=== PATIENT | female | born 1975 | race Caucasian/White ===

== ENCOUNTER 2019-08-08 14:55 | Emergency (ER) | payer OTHER, SELFPAY ==
--- NOTE | ~2019-08-08 | US_ITS ---
EXAMINATION: US right upper quadrant EXAM DATE: 08/08/2019 16:58 INDICATION: Right upper quadrant pain. TECHNIQUE: Multiple grayscale and Doppler images of the abdomen right upper quadrant were obtained (b y a technologist who performed the scan) and subsequently reviewed. There is no prior study for girish francisco. FINDINGS: The pancreatic head and body are normal in appearance. The pancreatic tail is not visualized. The l iver has normal echogenicity and contour. There are no focal liver lesions identified. There is no evidence of intrahepatic biliary duct dilation. Portal venous flow was seen in the hepatopedal, nor mal direction and has normal Doppler waveform. No right-sided hydronephrosis. Common bile duct measures 6 mm, which is normal. The gallbladder wall is normal in thickness, with ex pected amount of distention. No sonographic evidence of pericholecystic fluid. There is no cholelit hiases. Technologist performing exam reports patient did not demonstrate sonographic Barron's sign. Please note that this sign is less reliable in patients who have received pain medication. IMPRESSION: Unremarkable abdominal ultrasound exam. Reviewed, dictated and finalized at location A. [employer]
[2019-08-08 14:55] VITALS: BP 125/80; PULSE 98; RESP 16; TEMP 37.2; O2SAT 97
[2019-08-08 16:11] LABS: Basophils Absolute Auto 0.05 K/mm3 (0.00-0.10); Basophils Percent Auto 0.5 % (0.0-1.0); Eosinophils Absolute Auto 0.37 K/mm3 (0.02-0.50); Eosinophils Percent Auto 3.8 % (1.0-6.0); Hematocrit 37.1 % (35.0-49.0); Hemoglobin 12.4 g/dL (12.0-15.0); Immature Granulocyte Absolute 0.07 K/mm3 (0.00-0.00); Immature Granulocyte Percent A 0.7 % (0.0-0.0); Lymphocytes Absolute Auto 3.42 K/mm3 (1.10-4.50); Lymphocytes Percent Auto 34.9 % (18.0-42.0); Mean Corpuscular HGB Conc 33.4 g/dL (32.0-36.0); Mean Corpuscular Hemoglobin 31.2 pg (27.0-31.0); Mean Corpuscular Volume 93.5 fL (78.0-102.0); Mean Platelet Volume 9.5 fl (9.2-11.8); Monocytes Percent Auto 10.2 % (2.0-11.0); Neutrophils Absolute Auto 4.9 K/mm3 (1.7-7.2); Neutrophils Percent Auto 49.9 % (50.0-70.0); Platelet Count Result 274 K/mm3 (150-420); Red Blood Count 3.97 M/mm3 (4.20-5.40); Red Cell Distribution Width 13.3 % (11.6-14.4); White Blood Count 9.8 K/mm3 (4.8-10.8)
[2019-08-08 16:21] LABS: Alanine Aminotransferase 25 U/L (14-59); Albumin Level 3.3 g/dL (3.4-5.0); Alkaline Phosphatase 87 U/L (46-116); Amylase 64 U/L (25-115); Aspartate Amino Transferase 13 U/L (15-37); Bilirubin,Total 0.2 mg/dL (0.00-1.00); Blood Urea Nitrogen 15 mg/dL (7-18); Carbon Dioxide 26 mmol/L (21-32); Chloride 105 mmol/L (98-108); Estimated Glomerular Filt Rate > 60; Glucose 87 mg/dL (70-99); Lipase 142 U/L (73-393); Osmolality Calculated 287 mOsm/kg (285-295); Sodium 139 mmol/L (136-145); Total Protein 7.8 g/dL (6.4-8.2)
[2019-08-08 16:22] LABS: Troponin I < 0.02 ng/mL (0.00-0.056)
--- NOTE | 2019-08-08 17:15 | ED.GENADULT ---
HPI - General Adult General Chief complaint: Chest Pain Stated complaint: CHEST PAIN THROAT PAIN Time Seen by Provider: 08/08/19 16:25 Source: patient Mode of arrival: ambulatory Limitations: no limitations History of Present Illness HPI narrative: Lo is a 44-year-old female patient. She presents ambulatory to the emergency room. She has had pain in the epigastric area radiating substernally into the chest. This has been going on for nearly 2 weeks. She states that any kind of for food makes the symptoms worse. She has no shortness of breath. no cough. No fever. She has had some vomiting. She associates the symptoms with eating though not with any particular type of food . No history of diarrhea. She says that she had diabetes but she lost a lot of weight and now she does not have to take any medication for diabetes. MD complaint: epigastric pain radiating substernally Onset (ago): week(s) ( 2 weeks) Severity: moderate Quality: burning Pain Consistency: intermittent Relieving factors: none Exacerbating factors: other ( See HPI narrative) Associated symptoms: other ( see HPI narrative) Treatments prior to arrival: none Related Data Home Medications Medication Instructions Recorded Confirmed lamotrigine 100 mg PO HS 08/08/19 08/08/19 prazosin 6 mg PO HS 08/08/19 08/08/19 risperidone 1 mg PO DAILY 08/08/19 08/08/19 Allergies Allergy/AdvReac Type Severity Reaction Status Date / Time Penicillins Allergy Intermediate Verified 12/06/17 08:59 Review of Systems Review of Systems: All systems reviewed & are unremarkable except as noted in HPI and below Constitutional: Constitutional: Reports as per HPI, Reports no additional constitutional complaints, Denies chills and Denies fever(s) Eyes: Eyes: Reports as per HPI, Reports no additional eye complaints and Denies change in vision ENT: Reports system reviewed and no additional complaints, except as documented, Denies dysphagia, Denies vertigo, Denies dizziness, Denies nasal congestion and Denies sore throat Cardiovascular: Cardiovascular: Reports no additional cardiovascular complaints and Denies radiating jaw, neck or arm pain Comments: see HPI narrative for details Respiratory: Respiratory: Reports as per HPI, Denies chest congestion, Denies cough and Denies wheezing Gastrointestinal: Gastrointestinal: Reports as per HPI, Reports nausea and Reports vomiting Comments: see HPI narrative Genitourinary: Genitourinary: Reports no additional female genitourinary complaints, Denies hematuria and Denies dysuria Musculoskeletal: Musculoskeletal: Reports no additional musculoskeletal complaints and Denies back pain Integumentary/Breasts: Skin/Breast: Reports system reviewed and no additional complaints, except as docu, Denies erythema and Denies rash Neurologic: Reports system reviewed and no additional complaints, except as documented Comments: mild anxiety. She has history of PTSD depression and anxiety Psychiatric: Psychiatric: Reports depression Comments: has history of anxiety depression and PTSD Endocrine: Endocrine: Reports as per HPI, Denies polydipsia and Denies polyuria Hematologic/Lymphatic: Hematologic/Lymphatic: Reports no additional hematologic/lymphatic complaints, Denies easy bleeding and Denies easy bruising Allergic/Immunologic: Allergic/Immunologic: Reports no additional allergic/immunologic complaints PMFSH Past Medical History Medical History (Updated 08/08/19 @ 17:56 by Hari Garcia MD) Anxiety Depression Obesity PTSD (post-traumatic stress disorder) Surgical History Surgical History (Updated 08/08/19 @ 17:48 by Hari Garcia MD) History of tubal ligation Family History Family History (Updated 08/08/19 @ 17:50 by Hari Garcia MD) Mother , mother had obesity and diabetes Diabetes mellitus Father , father of lung cancer No problems noted. Sibling , A siste
--- NOTE | 2019-08-08 17:17 | ECG_ITS ---
Measurements Intervals [place] Rate: 91 P: 44 AK: 120 QRS: 14 QRSD: 101 T: 17 QT: 380 QTc: 469 Interpretive Statements SINUS RHYTHM LOW QRS VOLTAGE IN PRECORDIAL LEADS BORDERLINE ECG Electronically Signed On 08-09-2019 7:40:31 PRIMARY CARE PHYSICIAN by Ky Willis D.O.
[2019-08-08 17:25] VITALS: BP 121/79; PULSE 93; RESP 14; O2SAT 97
== END 2019-08-08 17:26 | disposition home or self-care (01) ==
LOC: CHSED 16:02
PROVIDERS: Emergency Provider Surgery
DX: R10.13 Epigastric pain (principal); K21.9 Gastro-esophageal reflux disease without esophagitis
CPT/HCPCS: 36415; 76705; 80053; 82150; 83690; 84484; 85025; 93005; 99284

== ENCOUNTER 2021-10-20 14:44 | Emergency (ER) | payer OTHER, SELFPAY ==
[2021-10-20 15:00] VITALS: BP 132/95; PULSE 106; RESP 20; TEMP 36.9; O2SAT 96
--- NOTE | 2021-10-20 15:05 | ED.WOUNDLAC ---
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 Onset (ago): hour(s) Extremity Location: Left: hand ( laceration to left ring finger well approximated) Related Data Home Medications Medication Instructions Recorded Confirmed lamotrigine 100 mg PO HS 08/08/19 08/08/19 prazosin 6 mg PO HS 08/08/19 08/08/19 risperidone 1 mg PO DAILY 08/08/19 08/08/19 Allergies Allergy/AdvReac Type Severity Reaction Status Date / Time Penicillins Allergy Intermediate Verified 12/06/17 08:59 Review of Systems Review of Systems: All systems reviewed & are unremarkable except as noted in HPI and below PMFSH Past Medical History Medical History Anxiety Depression Obesity PTSD (post-traumatic stress disorder) Surgical History Surgical History History of tubal ligation Family History Family History Mother , mother had obesity and diabetes Diabetes mellitus Father , father of lung cancer No problems noted. Sibling , A sister at age 42 of melanoma No problems noted. Social History Social History Smoking status: Current every day smoker Additional smoking assessment comments: smokes half pack of cigarettes a day Substance use: never Exam Const: General: no acute distress and alert Orientation/consciousness: patient oriented x3 HENMT: Head: normal to inspection Eyes: Conjunctivae: conjunctivae normal Pupils: Equal, round and reactive pupils present Neck: Neck: normal visual inspection and no lymphadenopathy Chest: Chest palpation & inspection: normal inspection of the chest Resp: Effort & Inspection: normal respiratory effort Auscultation: clear to auscultation bilaterally Cardio: Rate: regular rate Rhythm: regular rhythm GI: GI Palp: Yes Soft to palpation Percussion: Yes normal to percussion Urinary Catheter: Urinary Catheter: patent and draining Back/Spine/Pelvis: Back: no CVA tenderness Skin: General skin exam: normal color Wounds: wounds noted ( Well-approximated laceration lateral aspect of the nail bed and finger) Neuro: General: patient oriented x3, moves all extremities and no meningeal signs Extrem: General: normal to inspection Psych: Mental Status: mental status grossly normal Affect: normal affect Course Course Emergency Course: applied Dermabond after the area was cleaned and consent obtained currently no bleeding patient tolerated procedure well Vital Signs Vital signs: Vital Signs Temperature 36.9 C 10/20/21 15:00 Pulse Rate 106 H 10/20/21 15:00 Respiratory Rate 20 10/20/21 15:00 Blood Pressure 132/95 H 10/20/21 15:00 Pulse Oximetry 96 10/20/21 15:00 Temperature 36.9 C 10/20/21 15:00 Pulse Rate 106 H 10/20/21 15:00 Respiratory Rate 20 10/20/21 15:00 Blood Pressure 132/95 H 10/20/21 15:00 Pulse Oximetry 96 10/20/21 15:00 Procedures Laceration Laceration 1: Date: 10/20/21 Time: 15:08 Site: upper extremity Side (If applicable): left Size (cm): 2 Description: linear Pre-repair: wound explored and irrigated ====== Skin Level ====== Skin layer closed with: dermabond ====== Subcutaneous Layer ====== ====== Muscle Layer ====== ====== Te
[2021-10-20] MEDS: TETANUS,DIPHTHERIA,AC PERTUSSIS ADULT 0.5 ML (ADACEL) IM (15:06)
== END 2021-10-20 15:16 | disposition home or self-care (01) ==
PROVIDERS: Emergency Provider Emergency Medicine; PCP Nurse Practitioner Family
DX: S61.215A Laceration without foreign body of left ring finger without damage to nail, initial encounter (principal); W45.8XXA Other foreign body or object entering through skin, initial encounter
CPT/HCPCS: 12001; 90471; 90715; 99282

== ENCOUNTER 2022-04-01 09:08 | Emergency (ER) | payer OTHER, SELFPAY ==
[2022-04-01] VITALS (17 sets, daily range): BP systolic 111–144; BP diastolic 79–92; PULSE 73–90; RESP 9–20; TEMP 36.6–36.8; O2SAT 93–98
--- NOTE | ~2022-04-01 | CT_ITS ---
EXAMINATION: CTA brain DATE: 04/01/2022 13:03 INDICATION: Right arm weakness and numbness. Right leg weakness. TECHNIQUE: Computed tomographic angiography (CTA) of the head was performed without and with 100 mL O mnipaque-350 intravenous contrast. Automated exposure control and iterative reconstruction technique were employed. The dose-length product was 1559.92 mGy-cm. Maximum intensity projection 3D reconstru ctions were created. Volume-rendered 3D reconstructions of the intracranial arteries were created by the technologist on a separate workstation. COMPARISON: None. FINDINGS: There is no intracranial hemorrhage, acute infarction, or abnormal intracranial mass lesion . The ventricles are normal in size. The orbits are normal. There is mild mucosal thickening in the p aranasal sinuses. The mastoid air cells are normal. There is plaque in the proximal internal carotid arteries with 0% stenosis on the right and 21% stenosis on the left relative to normal distal artery lumen diameters. There is no significant stenosis of the intracranial internal carotid arteries or an terior or middle cerebral arteries. Anterior communicating artery is normal. The vertebral arteries a re codominant. There is no significant stenosis of basilar artery or the posterior cerebral arteries. The posterior communicating arteries are normal. There is no aneurysm. There is severe cervical spon dylosis. IMPRESSION: 1. Normal brain. No aneurysm or significant intracranial internal stenosis. Reviewed, dictated and finalized at location A.
--- NOTE | 2022-04-01 09:23 | ECG_ITS ---
Measurements Intervals [place] Rate: 85 P: 28 MI: 115 QRS: 2 QRSD: 78 T: 17 QT: 366 QTc: 436 Interpretive Statements SINUS RHYTHM WITH SHORT MI INTERVAL COMPARED TO ECG 08/08/2019 17:24:26 NO SIGNIFICANT CHANGES Electronically Signed On 04-03-2022 14:33:04 CDT by Miguel An M.D.
[2022-04-01 09:42] LABS: Basophils Absolute Auto 0.03 K/mm3 (0.00-0.10); Basophils Percent Auto 0.5 % (0.0-1.0); Eosinophils Absolute Auto 0.04 K/mm3 (0.02-0.50); Eosinophils Percent Auto 0.7 % (1.0-6.0); Hematocrit 44.4 % (35.0-49.0); Hemoglobin 14.6 g/dL (12.0-15.0); Immature Granulocyte Absolute 0.02 K/mm3 (0.00-0.00); Immature Granulocyte Percent A 0.4 % (0.0-0.0); Lymphocytes Absolute Auto 2.54 K/mm3 (1.10-4.50); Lymphocytes Percent Auto 45.2 % (18.0-42.0); Mean Corpuscular HGB Conc 32.9 g/dL (32.0-36.0); Mean Corpuscular Hemoglobin 32.4 pg (27.0-31.0); Mean Corpuscular Volume 98.4 fL (78.0-102.0); Monocytes Absolute Auto 0.53 K/mm3 (0.10-0.90); Monocytes Percent Auto 9.4 % (2.0-11.0); Neutrophils Absolute Auto 2.5 K/mm3 (1.7-7.2); Neutrophils Percent Auto 43.8 % (50.0-70.0); Platelet Count Result 197 K/mm3 (150-420); Red Blood Count 4.51 M/mm3 (4.20-5.40); Red Cell Distribution Width 13.8 % (11.6-14.4); White Blood Count 5.6 K/mm3 (4.8-10.8)
[2022-04-01] MEDS: SODIUM CHLORIDE 0.9% IV 1,000 ML 999 ML IV CONT (09:44)
--- NOTE | 2022-04-01 09:52 | PC.NURSE ---
PT HAS NO FACIAL DROOP, SLURRED SPEECH, DENIES ANY DIFFICULTY EATING OR SWALLOWING.
[2022-04-01 09:58] LABS: Partial Thromboplastin Time 31.7 SEC (23.90-30.70); Prothrombin Time 10.5 Seconds (9.50-12.10)
[2022-04-01 09:59] LABS: Alanine Aminotransferase 16 U/L (14-59); Albumin Level 3.3 g/dL (3.4-5.0); Alkaline Phosphatase 83 U/L (46-116); Anion Gap 8 mmol/L (8-16); Aspartate Amino Transferase 20 U/L (15-37); Bilirubin,Total 0.2 mg/dL (0.00-1.00); Blood Urea Nitrogen 13 mg/dL (7-18); Calcium 8.2 mg/dL (8.5-10.1); Carbon Dioxide 24 mmol/L (21-32); Chloride 107 mmol/L (98-108); Estimated Glomerular Filt Rate > 60; Glucose 94 mg/dL (70-99); Osmolality Calculated 288 mOsm/kg (285-295); Potassium 3.9 mmol/L (3.5-5.1); Sodium 139 mmol/L (136-145); Total Protein 7.4 g/dL (6.4-8.2); Troponin I 6.2 ng/L (0.00-60.4)
--- NOTE | 2022-04-01 10:43 | PC.NURSE ---
PT DENIES ANY NEEDS OR COMPLAINTS. PT IS RESTING ON STRETCHER IN EXAM ROOM, REPORTS THE NUMBNESS CONTINUES, DESCRIBES TINGLING ALL THE WAY DOWN TO TOES . PT IS AWAITING CT AT THIS TIME, DELAY DUE TO CT MACHINE PROBLEMS. NAD NOTED. VSS. WILL CONTINUE TO MONITOR.
[2022-04-01 12:18] LABS: Appearance Urine Clear (Clear); Bilirubin Urine Negative (Negative); Blood Urine Negative (Negative); Glucose Urine UA Negative (Negative); Ketones Urine Negative (Negative); Leukocyte Esterase Ur Negative (Negative); Nitrate Urine Negative (Negative); Protein Urine Negative (Negative); Specific Grav Ur >= 1.030 (1.010-1.020); Urobilinogen Urine 0.2 mg/dL (0.2-1.0)
[2022-04-01 12:21] LABS: Add Urine Microscopic? NO; Color Urine Light Yellow (Yellow)
--- NOTE | 2022-04-01 13:00 | ED.WEAKNESS ---
HPI - Weakness General Chief complaint: Weakness Stated complaint: headache, diarrhea, sores on head, L-sided numbnes Time Seen by Provider: 04/01/22 09:15 Source: patient Mode of arrival: ambulatory Limitations: no limitations History of Present Illness HPI Narrative: this is a 47-year-old female with no significant past medical history except for a long history of tobacco use since she was 8 years old approximately 2 packs per day. Patient's vitals were stable blood pressure 116/81, the patient has been having right arm weakness and what she describes as some numbness and tingling, along with some dizziness and some blurred vision that started on , the patient felt that symptoms would get better but apparently not. Patient denies having a headache there is no neck pain or stiffness no nausea vomiting no fever chills no chest pain or shortness of breath. 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 MD Complaint: focal weakness, numbness and tingling Onset (ago): day(s) Duration: constant Migration: none Severity: moderate Quality: tingling and numbness Related Data Home Medications Medication Instructions Recorded Confirmed No Home Medications 10/20/21 04/01/22 Allergies Allergy/AdvReac Type Severity Reaction Status Date / Time Penicillins Allergy Intermediate Rash Verified 04/01/22 09:24 Review of Systems Review of Systems: All systems reviewed & are unremarkable except as noted in HPI and below PMFSH Past Medical History Medical History Anxiety Depression Obesity PTSD (post-traumatic stress disorder) Surgical History Surgical History History of tubal ligation Family History Family History Mother , mother had obesity and diabetes Diabetes mellitus Father , father of lung cancer No problems noted. Sibling , A sister at age 42 of melanoma No problems noted. Social History Social History Smoking status: Current every day smoker Additional smoking assessment comments: smokes half pack of cigarettes a day Substance use: never Exam Const: General: healthy appearing Nutritional Appearance: well nourished Orientation/consciousness: patient oriented x3 Limitations: no limitations HENMT: Head: normal to inspection General nose exam: Normal external nose present Face and sinus: normal facial exam Mouth: Yes Normal oral and palatal mucosa present Eyes: Conjunctivae: conjunctivae normal Pupils: Equal, round and reactive pupils present EOM: EOMs intact bilaterally Chest: Chest palpation & inspection: normal inspection of the chest Resp: Effort & Inspection: normal respiratory effort Auscultation: clear to auscultation bilaterally Cardio: Rate: regular rate Rhythm: regular rhythm GI: GI Palp: Yes Soft to palpation Auscultation: normal bowel sounds Back/Spine/Pelvis: Back: no CVA tenderness Skin: General skin exam: normal color Rashes: no rashes Wounds: no wounds Neuro: General: patient oriented x3, moves all extremities, no meningeal signs and no focal motor deficits ( Right arm weakness can raise her arm hard to elicit a drift) Other: patient with right arm weakness and she describes having some numbness and tingling, 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 Extrem: General: normal to inspection Psych: Mental Status: mental status grossly normal Affect: normal affect Course Course Emergency Course: Patient vitals are stable and jessica
[2022-04-01] MEDS: ASPIRIN 81 MG CHEWABLE TABLET 324 MG PO (14:18)
--- NOTE | 2022-04-01 16:42 | PC.NURSE ---
On 04/01/22, the student, [thanh cosme ], provided care and completed [facility] documentation on this patient. I have reviewed the student's documentation and agree with the findings.
== END 2022-04-01 16:10 | disposition short-term general hospital (02) ==
PROVIDERS: Emergency Provider Emergency Medicine; PCP Physician Assistant
DX: R51.9 Headache, unspecified (principal); R20.0 Anesthesia of skin
CPT/HCPCS: 36415; 70496; 80053; 81003; 84484; 85025; 85610; 85730; 93005; 96360; 99285; A9270; J7030; Q9967

== ENCOUNTER 2022-04-01 16:53 | Inpatient (IN) | payer OTHER, SELFPAY ==
--- NOTE | ~2022-04-01 | MR_ITS ---
EXAMINATION: MR brain/brain stem w con DATE: 04/03/2022 12:59 INDICATION: Brain lesion. Right hemiparesis. TECHNIQUE: Magnetic resonance imaging (MRI) of the brain and brainstem was performed with 18 mL Multi Cassidy intravenous contrast. COMPARISON: Brain MRI 04/02/2022, head CT 04/01/2022 FINDINGS: There are scattered areas of nonspecific increased T2-weighted signal intensity in the cere bral white matter, which is within normal limits for the patient's age. The ventricles are normal in size. There are no pathologically enlarged lymph nodes. There is mucosal thickening in the paranasal sinuses. The mastoid air cells are normal. IMPRESSION: 1. Normal brain. Reviewed, dictated and finalized at location B. IMPRESSION: 1. Normal brain.
--- NOTE | ~2022-04-01 | US_ITS ---
EXAMINATION: US venous doppler UE RT DATE: 04/03/2022 13:22 INDICATION: Right upper limb swelling. TECHNIQUE: Grayscale ultrasound images without and with compression and Doppler ultrasound images of the right upper extremity veins were obtained. COMPARISON: None. FINDINGS: The visualized portions of the right internal jugular vein, subclavian vein, axillary vein, brachial veins, basilic vein, cephalic vein, radial vein, and ulnar vein are patent. IMPRESSION: 1. No deep venous thrombosis. Reviewed, dictated and finalized at location B.
--- NOTE | ~2022-04-01 | MR_ITS ---
EXAMINATION: MR cervical spine wo/w con DATE: 04/03/2022 12:58 INDICATION: Right hemiparesis. TECHNIQUE: Magnetic resonance imaging (MRI) of the cervical spine was performed without and with 18 m L MultiHance intravenous contrast. COMPARISON: None FINDINGS: Bone alignment is normal. Vertebral body heights are normal. There is moderately decreased disc height at C5-C6 and severely decreased disc height at C6-C7. The spinal cord signal intensity is normal. The following disc levels are specifically discussed: C2-C3: The disc does not extend beyond the endplate margin. There is no uncovertebral joint osteoarth ritis. There is mild bilateral facet joint osteoarthritis. There is no neural foraminal stenosis. The re is no central canal stenosis. C3-C4: The disc does not extend beyond the endplate margin. There is mild left uncovertebral joint os teoarthritis. There is moderate left facet joint osteoarthritis. There is mild left neural foraminal stenosis. There is no central canal stenosis. C4-C5: The disc does not extend beyond the endplate margin. There is mild bilateral uncovertebral philly nt osteoarthritis. There is mild bilateral facet joint osteoarthritis. There is no neural foraminal s tenosis. There is no central canal stenosis. C5-C6: The disc is bulging. There is severe bilateral uncovertebral joint osteoarthritis. There is mi ld bilateral facet joint osteoarthritis. There is moderate bilateral neural foraminal stenosis. There is mild central canal stenosis. C6-C7: The disc is bulging. There is severe bilateral uncovertebral joint osteoarthritis. There is mi ld right and moderate left facet joint osteoarthritis. There is mild right and moderate left neural f oraminal stenosis. There is mild central canal stenosis. C7-T1: The disc does not extend beyond the endplate margin. There is no uncovertebral joint osteoarth ritis. There is moderate right and severe left facet joint osteoarthritis. There is mild bilateral ne ural foraminal stenosis. There is no central canal stenosis. IMPRESSION: 1. Severe cervical spondylosis. Reviewed, dictated and finalized at location B.
--- NOTE | ~2022-04-01 | US_ITS ---
EXAMINATION: US carotid duplex BI DATE: 04/02/2022 09:30 INDICATION: Strokelike symptoms with right-sided hemiparesis TECHNIQUE: Grayscale, color Doppler, and pulsed Doppler images of the cervical carotid arteries were obtained. The degree of vessel stenosis is placed in one of the following categories: normal, <50%, 5 0-69%, >=70% but less than near-occlusion, near-occlusion, or total occlusion. Note that percent sten osis relative to normal distal artery lumen diameter is indirectly measured from velocity measurement s as described by Darwin, et al. Radiology 2003; 229:340-346. COMPARISON: None. FINDINGS: RIGHT: The right common carotid artery (CCA) peak systolic velocity (PSV) is 82 cm/s. The right internal car otid artery (ICA) PSV is 73 cm/s. The right ICA end-diastolic velocity (EDV) is 35 cm/s. The right IC A/CCA PSV ratio is 1.0. Grayscale and color Doppler images yield an estimate of <50% diameter reducti on from plaque in the ICA. The external carotid artery (ECA) PSV is 65 cm/s. There is antegrade flow in the right vertebral artery. LEFT: The left CCA PSV is 80 cm/s. The left ICA PSV is 79 cm/s. The left ICA EDV is 35 cm/s. The left ICA/C CA PSV ratio is 1.0. Grayscale and color Doppler images yield an estimate of <50% diameter reduction from plaque in the ICA. The ECA PSV is 72 cm/s. There is antegrade flow in the left vertebral artery. IMPRESSION: 1. <50% stenosis in the right internal carotid artery. 2. <50% stenosis in the left internal carotid artery. Reviewed, dictated and finalized at location A.
--- NOTE | ~2022-04-01 | MR_ITS ---
EXAMINATION: MR lumbar spine wo/w con DATE: 04/05/2022 09:51 INDICATION: Weakness. TECHNIQUE: Magnetic resonance imaging (MRI) of the lumbar spine was performed without and with 17 mL MultiHance intravenous contrast. COMPARISON: None FINDINGS: There is 6 degrees dextrocurvature in lumbar spine. There is 4 mm retrolisthesis of L5 on S 1. Vertebral body heights are normal. There is severely decreased disc height at L5-S1 with endplate remodeling. The distal spinal cord signal intensity is normal. The conus medullaris is at L1. There a re cysts in the kidneys measuring up to 16 mm on the left. The following disc levels are specifically discussed: L1-L2: The disc does not extend beyond the endplate margin. There is mild bilateral facet joint osteo arthritis. There is no neural foraminal stenosis. There is no central canal stenosis. L2-L3: There is a central and foraminal zone protrusion with annular fissure. There is mild bilateral facet joint osteoarthritis. There is mild left neural foraminal stenosis. There is mild central shira l stenosis. L3-L4: The disc is bulging and has an annular fissure. There is severe bilateral facet joint osteoart hritis. There is mild bilateral neural foraminal stenosis. There is mild central canal stenosis. L4-L5: The disc is bulging. There is severe right and moderate left facet joint osteoarthritis. There is mild bilateral neural foraminal stenosis. There is mild central canal stenosis. L5-S1: The disc is bulging and has an annular fissure. There is severe bilateral facet joint osteoart hritis. There is mild bilateral neural foraminal stenosis. There is mild central canal stenosis. IMPRESSION: 1. Severe lower lumbar spondylosis. Reviewed, dictated and finalized at location A.
--- NOTE | ~2022-04-01 | MR_ITS ---
EXAMINATION: MR thoracic spine wo/w con DATE: 04/03/2022 12:58 INDICATION: Right hemiparesis. TECHNIQUE: Magnetic resonance imaging (MRI) of the thoracic spine was performed without and with 18 m L MultiHance intravenous contrast. COMPARISON: None FINDINGS: There is 16 degrees levoscoliosis of upper thoracic spine. Vertebral body heights are adair l. Intervertebral disc heights are normal. At T8-T9, there is a left central extrusion with mild cent ral canal stenosis and ventral indentation of the spinal cord. At T9-T10, there is a left central ext rusion with mild central canal stenosis. There is multilevel facet joint osteoarthritis, severe at ma ny levels. On the right, there is mild neural foraminal stenosis at T1-T2, T2-T3, T3-T4, T4-T5, T5-T6 , and T6-T7. On the left, there is mild neural foraminal stenosis at T2-T3, T8-T9, and T10-T11. The s ani cord signal intensity is normal. IMPRESSION: 1. Mild thoracic spondylosis. 2. Thoracic levoscoliosis. Reviewed, dictated and finalized at location B.
--- NOTE | ~2022-04-01 | MR_ITS ---
EXAMINATION: MR brain/brain stem wo con DATE: 04/02/2022 07:34 INDICATION: Strokelike symptoms with right arm numbness and weakness and right leg weakness TECHNIQUE: Magnetic resonance imaging (MRI) of the brain and brainstem was performed without intraven ous contrast. Sequences included sagittal and axial T1-weighted SE, axial diffusion-weighted FS SE, a xial T2*-weighted GRE, axial 3D SWAN, axial T2-weighted FLAIR, and axial T2-weighted FSE. Apparent di ffusion coefficient (ADC) maps were created. COMPARISON: Brain CT angiogram dated 04/01/2022 FINDINGS: There are no areas of restricted diffusion to suggest acute infarction. No intracranial hemorrhage or abnormal intracranial mass lesion. There are no intraparenchymal signal abnormalities seen on the ot her pulse sequences. The ventricles are symmetric and normal in size. There are no abnormal extra-axi al fluid collections. Flow voids are seen in the cerebral arteries on the T2-weighted sequences consi stent with their expected patency. Mild mucosal thickening the paranasal sinuses. Visualized orbits a nd soft tissues are unremarkable. IMPRESSION: 1. Normal brain. No acute intracranial process. Reviewed, dictated and finalized at location A.
--- NOTE | ~2022-04-01 | US_ITS ---
EXAMINATION: US arterial duplex UE RT DATE: 04/03/2022 13:21 INDICATION: Right upper limb swelling and numbness and tingling. TECHNIQUE: Multiple grayscale and Doppler ultrasound images of the right upper limb were obtained. COMPARISON: None FINDINGS: Peak systolic velocity is 61 cm/s right common carotid artery, 78 cm/s in right subclavian artery, 44 cm/s in axillary artery, 53 cm/s in brachial artery, 51 cm/s in radial artery, and 39 cm/s in ulnar artery. IMPRESSION: 1. No significant arterial occlusive disease. Reviewed, dictated and finalized at location B.
--- NOTE | ~2022-04-01 | XR_ITS ---
EXAM: XR wrist RT 2V, XR hand RT 2V DATE: 04/03/2022 17:21 HISTORY: Right hand swelling . COMPARISON: None available. FINDINGS: Normal mineralization. No fracture or dislocation. No lytic or blastic lesion. Joint space s are maintained. Ulnar positive variance. No erosion or periosteal change. Soft tissues within adair l limits. IMPRESSION: No acute osseous finding in the right hand or wrist. Reviewed, dictated and finalized at location K. IMPRESSION: No acute osseous finding in the right hand or wrist.
--- NOTE | ~2022-04-01 | XR_ITS ---
EXAMINATION: XR lumbar puncture diagnostic DATE: 04/04/2022 17:06 INDICATION: Right hemiparesis. TECHNIQUE: The procedure including the risks, benefits, and alternatives was discussed with the patie nt. Risks discussed included spinal headache, bleeding, and infection. The patient understood the ris ks and agreed to proceed. A timeout was performed to verify the patient's name, date of , and procedure to be performed. The skin overlying the L2-L3 level was prepped and draped in usual steri le fashion. Subcutaneous 1% lidocaine was used for local anesthesia. A 20 gauge spinal needle was a dvanced under fluoroscopic guidance. The needle was removed and the entry site was cleaned and dresse d. There were no immediate complications. Fluoroscopy exposure time was 0.0 minutes. The total numbe r of images was 1. FINDINGS: Real-time fluoroscopy demonstrates the needle at the L2-L3 level. The opening pressure was 11 cm water (Normal range is variably defined as 6-20 cm water and up to 25 cm water in obese patient s. Pressure >25 cm water is one of the modified Dandy criteria for idiopathic intracranial hypertensi on). 13 mL of clear, colorless fluid was collected in 4 tubes. IMPRESSION: 1. Successful fluoro-guided lumbar puncture. Reviewed, dictated and finalized at location A.
[2022-04-01 16:59] VITALS: BP 132/83; PULSE 73; RESP 18; TEMP 36.1; O2SAT 99
--- NOTE | 2022-04-01 17:28 | ADMGEN ---
This patient, Lo Fitzgerald, was admitted to Medical Room 249-01. Patient/family oriented to hospital policies and general routines including ID bracelet, bed and alarms, visiting hours, pain management, procedures, bathroom and other care routines, personal items, smoking policy, room service/diet, and visiting hours. Information on how to activate the Rapid Response Team has been discussed. Patient/Family are encouraged to report perceived risks to care and to ask questions if they do not understand what they are told or what they should do.
--- NOTE | 2022-04-01 19:34 | PM.IMHP ---
H&P: HPI History of Present Illness Date/Time: 04/01/22 19:34 Chief Complaint: Right side weak Narrative: this is a 47-year-old female patient who has a past medical history of depression and anxiety. She also has a history of tobacco use. She has smoked cigarettes since she is 8 years old. She smokes up to about 2 packs a day. She does not have any history of hypertension. The patient stated that she had numbness and tingling along with some dizziness and blurred vision that started on . The patient thought that these symptoms would subside but they did not. The left eye vision is good now but the right eye vision is still slightly blurry. She can move her right upper extremity and right lower extremity but they are weak. The patient does not take any medications at home. The patient had a CTA of the brain at [facility] and was read as a normal brain no aneurysm or significant intracranial internal stenosis. The patient was given an aspirin at [facility]. Her calcium is slightly low at 8.2. The patient is being admitted for observation status on the date of service of 04/01/2022. Review of Systems Review of Systems: See HPI All systems reviewed & are unremarkable except as noted in HPI and below Constitutional: Constitutional: Reports as per HPI and Reports no additional constitutional complaints Eyes: Eyes: Reports as per HPI and Reports no additional eye complaints ENT: Reports system reviewed and no additional complaints, except as documented and Reports Normal hearing present Cardiovascular: Cardiovascular: Reports no additional cardiovascular complaints Respiratory: Respiratory: Reports no additional respiratory complaints and Reports no additional respiratory complaints Gastrointestinal: Gastrointestinal: Reports as per HPI and Reports no additional gastrointestinal complaints Musculoskeletal: Musculoskeletal: Reports no additional musculoskeletal complaints Integumentary/Breasts: Skin/Breast: Reports system reviewed and no additional complaints, except as docu and Reports as per HPI Neurologic: Reports system reviewed and no additional complaints, except as documented, Reports as per HPI and Reports Normal hearing present Psychiatric: Psychiatric: Reports no additional psychiatric complaints and Reports as per HPI Endocrine: Endocrine: Reports no additional endocrine complaints Hematologic/Lymphatic: Hematologic/Lymphatic: Reports no additional hematologic/lymphatic complaints Allergic/Immunologic: Allergic/Immunologic: Reports no additional allergic/immunologic complaints [facility] Past Medical History Medical History (Updated 04/01/22 @ 19:58 by Dee Dee Figueroa NP) Anxiety Depression Obesity PTSD (post-traumatic stress disorder) Tobacco abuse Surgical History Surgical History History of tubal ligation Family History Family History Mother , mother had obesity and diabetes Diabetes mellitus Father , father of lung cancer No problems noted. Sibling , A sister at age 42 of melanoma No problems noted. Social History Social History (Updated 04/01/22 @ 19:44 by Dee Dee Figueroa NP) Social History: the patient lives with her significant other and her daughter. The patient did have 3 children but her son from COVID this past year. 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 She still smokes about half a pack a cigarettes every day. Started smoking when she was 8 years old. Patient denies any alcohol marijuana or illicit drugs. Her significant other and her daughter are the durable power state's attorney for healthcare. Code status full code Smoking packs per day: 0.5 Smoking cigarettes per day: 10.0 Years smoked: 39 Smoking pack-years: 19.50 Smoking
[2022-04-01 20:00] VITALS: BP 126/80; PULSE 74; RESP 16; TEMP 36.4; O2SAT 98
[2022-04-01 20:37] LABS: Appearance Urine Clear (Clear); Bilirubin Urine Negative (Negative); Blood Urine Negative (Negative); Color Urine Yellow (Yellow); Glucose Urine UA Negative (Negative); Ketones Urine Negative (Negative); Leukocyte Esterase Ur Negative LEU/UL (Negative); Nitrate Urine Negative (Negative); Protein Urine Negative (Negative); Specific Grav Ur 1.015 (1.001-1.035); Urobilinogen Urine 0.2 mg/dL (<2.0)
[2022-04-01 20:48] VITALS: BMI 39.8
[2022-04-01] MEDS: CALCIUM GLUC 1,000 MG/NS 100ML 1,000 MG/100 ML BAG 200 MG IVPB (21:00)
[2022-04-01] MEDS: CEPHALEXIN 500 MG CAPSULE PO (21:01)
[2022-04-01 22:08] LABS: Add Urine Microscopic? NO
[2022-04-02] VITALS (9 sets, daily range): BP systolic 117–150; BP diastolic 71–86; PULSE 62–80; RESP 16–20; TEMP 35.9–36.7; O2SAT 96–100
[2022-04-02 05:08] LABS: Basophils Percent Auto 0.6 % (0.2-1.2); Eosinophils Absolute Auto 0.2 K/mm3 (0-0.3); Hematocrit 43.7 % (37.0-47.0); Hemoglobin 14.3 g/dL (12.0-15.0); Immature Granulocyte Absolute 0.02 K/mm3 (0.00-0.031); Immature Granulocyte Percent A 0.4 % (0-0.5); Lymphocytes Absolute Auto 2.34 K/mm3 (0.9-3.2); Lymphocytes Percent Auto 43.4 % (18.3-44.2); Mean Corpuscular HGB Conc 32.7 g/dl (32-36); Mean Corpuscular Hemoglobin 32.6 pg (26-34); Mean Corpuscular Volume 99.8 fl (80-100); Mean Platelet Volume 9.9 fl (7.4-10.4); Monocytes Absolute Auto 0.4 K/mm3 (0.1-0.6); Monocytes Percent Auto 6.5 % (2.6-8.5); Neutrophils Absolute Auto 2.5 K/mm3 (1.3-6.7); Neutrophils Percent Auto 46.1 % (45.5-73.1); Platelet Count Result 181 k/mm3 (150-375); Red Blood Count 4.38 M/mm3 (4.2-5.4); Red Cell Distribution Width 14.1 % (11.5-14.5); White Blood Count 5.4 K/mm3 (4.5-10.0)
[2022-04-02 05:32] LABS: Alanine Aminotransferase 23 U/L (6-35); Albumin Level 3.8 g/dL (3.5-5.1); Alkaline Phosphatase 74 U/L (38-126); Anion Gap 8 mmol/L (8-16); Aspartate Amino Transferase 27 U/L (14-36); Bilirubin,Total 0.2 mg/dL (0.2-1.3); Blood Urea Nitrogen 12 mg/dL (7-17); CRP 1.4 mg/dL (<1.0); Calcium 8.5 mg/dL (8.4-10.2); Carbon Dioxide 22 mmol/L (22-30); Chloride 109 mmol/L (98-107); Estimated Glomerular Filt Rate > 60; Glucose 141 mg/dL (65-110); Lactate Dehydrogenase 175 U/L (120-246); Lipase 144 U/L (23-300); Magnesium 1.7 mg/dL (1.6-2.3); Potassium 3.7 mmol/L (3.4-5.0); Sodium 139 mmol/L (137-145)
--- NOTE | 2022-04-02 08:53 | PCPTNOTE ---
attempted PT eval 8:45--pt out of room for imaging;
--- NOTE | 2022-04-02 09:02 | WPDNEURCNPN ---
Assessment and Plan Assessment and plan (1) Right sided weakness: Code(s): R53.1 - Weakness Status: Acute (2) Depression: Code(s): F32.9 - Major depressive disorder, single episode, unspecified Status: Acute (3) Anxiety: Code(s): F41.9 - Anxiety disorder, unspecified Status: Acute (4) Tobacco abuse: Code(s): Z72.0 - Tobacco use Status: Acute Plan Ms. Fitzgerald is a 47 year old female with a history of chronic tobacco use, hypothyroidism, and anxiety/depression who presented with a two day history of right upper and lower extremity weakness/numbness and R sided vision loss. Etiology unclear. MRI brain was negative for acute stroke. Consider demyelinating lesion. - Obtain MRI brain with contrast and MRI cervical spine w/wo contrast - Surface echo, carotid doppler pending - Continue ASA 81mg and Lipitor 40mg daily - Counselled on smoking cessation Consult date: 04/02/22 Time Seen: 09:04 Reason for consult: R sided weakness HPI: Lo Fitzgerald is a 47 year old female with a history of depression, anxiety, hypothyroidism, and daily tobacco use. She presented with a two day history of numbness/tingling in her right arm as well as blurry vision in the right eye. She also reports weakness in right upper and lower extremity. Patient was initially evaluated at [facility] where she had a CT head which was negative. CTA head/neck showed 0% stenosis on the right and 21% stenosis on the left. She was transferred to [facility] for stroke work-up. She was started on daily aspirin. Patient smokes up to 2 ppd and has been smoking since age 8. Patient reports sudden onset of her symptoms. She continues to have weakness in her right arm and leg. She also reports numbness in the right arm and right leg, although these seems to wax and wane. she continues to feel dizzy and feels that her speech is more slurred. MRI brain was normal. Carotid ultrasound with <50% stenosis bilaterally. Review of Systems Constitutional: Constitutional: Denies chills and Reports weakness Eyes: Eyes: Reports blurry vision ENT: Reports system reviewed and no additional complaints, except as documented and Reports Normal hearing present Cardiovascular: Cardiovascular: Reports no additional cardiovascular complaints Respiratory: Respiratory: Reports no additional respiratory complaints Gastrointestinal: Gastrointestinal: Reports constipation Genitourinary: Genitourinary: Reports no additional female genitourinary complaints Musculoskeletal: Musculoskeletal: Reports arthralgias Integumentary/Breasts: Skin/Breast: Reports system reviewed and no additional complaints, except as docu Neurologic: Reports as per HPI and Reports numbness Psychiatric: Psychiatric: Reports anxiety and Reports depression [facility] Past Medical History Medical History Anxiety Depression Obesity PTSD (post-traumatic stress disorder) Tobacco abuse Surgical History Surgical History History of tubal ligation Family History Family History Mother , mother had obesity and diabetes Diabetes mellitus Father , father of lung cancer No problems noted. Sibling , A sister at age 42 of melanoma No problems noted. Social History Social History Social History: the patient lives with her significant other and her daughter. The patient did have 3 children but her son from COVID this past year. 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 She still smokes about half a pack a cigarettes every day. Started smoking when she was 8 years old. Patient denies any alcohol marijuana or illicit drugs. Her significant other and her daughter are the
[2022-04-02] MEDS: CEPHALEXIN 500 MG CAPSULE PO ×2 (09:46→21:26)
[2022-04-02] MEDS: ASPIRIN 81 MG ENTERIC TABLET PO (09:46)
[2022-04-02] MEDS: ATORVASTATIN 40 MG TABLET PO (09:46)
[2022-04-02 12:37] LABS: Free T4 Free Thyroxine Reflex 1.18 ng/dL (0.78-2.19)
[2022-04-02] MEDS: polyethylene glycoL 3350 17 GM POWD.PACK PO (12:44)
--- NOTE | 2022-04-02 13:00 | PM.IMPN ---
Progress Note: A&P Assessment and Plan (1) Right sided weakness: Code(s): R53.1 - Weakness Status: Acute Assessment and Plan: - Complaints of weak movements of her right upper arm and right lower extremity, not flaccid - Partially resolved blurred vision, right eye still lingering - Continue aspirin, add atorvastatin - CTA of the brain does not show any acute findings, 0% stenosis on the right and 21% stenosis on the left carotid arteries - bubble echo Doppler study ordered - MRI of the brain does not show any strokes or new findings - MRI of the brain with contrast, and spine with and without ordered - carotid Doppler <50% stenosis bilaterally - neurology has been consulted. - Still having the numbness and tingling - Right arm is swollen: Ultrasound of the RUE to rule out clot (2) Depression: Code(s): F32.9 - Major depressive disorder, single episode, unspecified Status: Acute Assessment and Plan: -Hx of depression and PTSD -No home medications -trend mood -should have patient follow up outpatient for further intervention (3) Anxiety: Code(s): F41.9 - Anxiety disorder, unspecified Status: Acute Assessment and Plan: -Hx of anxiety -No home medications -Has known tragedy with loss of son (4) Tobacco abuse: Code(s): Z72.0 - Tobacco use Status: Acute Assessment and Plan: -Smoking cessation education given for 8 minutes -Patch and gum PRN -Patient does not seem ready to quit (5) Folliculitis: Code(s): L73.9 - Follicular disorder, unspecified Status: Acute Assessment and Plan: -Continue with Keflex and have her follow-up with her primary care doctor when she is discharged. (6) Hypocalcemia: Code(s): E83.51 - Hypocalcemia Status: Acute Assessment and Plan: -Stable currently 8.5 today -Trend labs -supplement as indicated (7) Hypothyroidism: Code(s): E03.9 - Hypothyroidism, unspecified Status: Acute Assessment and Plan: TSH slightly elevated at 5.300 T4 1.18, T3 1.29 Not too off from normal Wait to supplement as this could be high related to acute disease process probably will need her to follow up with primary for further instructions Time Spent With Patient Time with patient: Greater than 35 minutes Subjective Date/time seen: 04/02/22 1300 Interval history: 04/02/22 1300 Patient stated that she is still having paresthesia in the right arm. She also stated that she is having dizziness when she gets up however she does feel little better today. She denies any chest pain, shortness of breath, nausea, vomiting, diarrhea. She did state that she was a little constipated and trying to get the MiraLax down. She states that her right hand is the worst when it comes the numbness. She also stated that she is not sure why her right arm is swollen. She denies any trauma or abrasions. 04/01/22? 19:34 ?this is a 47-year-old female patient who has a past medical history of depression and anxiety.? She also has a history of tobacco use.? She has smoked cigarettes since she is 8 years old.? She smokes up to about 2 packs a day.? She does not have any history of hypertension.? The patient stated that she had numbness and tingling along with some dizziness and blurred vision that started on .? The patient thought that these symptoms would subside but they did not.? The left eye vision is good now but the right eye vision is still slightly blurry.? She can move her right upper extremity and? right lower extremity but they are weak.? The patient does not take any medications at home.? The patient had a CTA of the brain at [facility] and was read as a normal brain no aneurysm or significant intracranial internal stenosis.? The patient was given an aspirin at [facility].? Her cristino
[2022-04-02 13:50] LABS: Total Triiodothyronine (T3) 1.29 NG/ML (0.97-1.69)
[2022-04-02] MEDS: ENOXAPARIN 40 MG/0.4 ML SYRINGE SUB-Q (21:26)
[2022-04-03] VITALS (9 sets, daily range): BP systolic 111–118; BP diastolic 68–74; PULSE 64–81; RESP 14–20; TEMP 35.9–36.6; O2SAT 95–98; BMI 39.8
--- NOTE | 2022-04-03 | ECHO_ITS ---
Patient Info Name: Lo Fitzgerald Age: 47 years : 1975 Gender: Female Ht: 59 in Wt: 195 lbs BSA: 1.97 m2 HR: 66 bpm BP: 145 / 46 mmHg Heart Rhythm: Sinus Rhythm Exam Date: 04/03/2022 8:06 AM Exam Location: [facility] Patient Status: Outpatient Admit Date: 04/01/2022 Staff Ordering Physician: Dee Dee Figueroa NP [employer]ire Retreader: Shoaib Barron RDCS, RT Attending Provider: Nadeen Gallardo PA-C Referring Physician: Carolina MCCONNELL; Exam Type: CA echo dop bubble study w con Study Info Indications Z01.810 - Encounter for preprocedural cardiovascular examination Strain analysis performed. Complete two-dimensional, color flow and Doppler transthoracic echocardiogram is performed with agitated saline. Summary 1. Left ventricular chamber dimension is normal. 2. Left ventricular systolic function is normal, estimated at 55-60%. 3. No valvular disease identified. 4. Agitated saline contrast injection shows no intracardiac shunt. 5. No likely cardioembolic source was identified. Left Ventricle Left ventricular chamber dimension is normal. Left ventricular systolic function is normal, estimated at 55-60%. The left ventricular diastolic function is normal. Right Ventricle Right ventricular chamber dimension is normal. Left Atria Left atrial chamber dimension is normal. Right Atria Right atrial chamber dimension is normal. Aortic Valve The aortic valve is normal. Pulmonic Valve The pulmonic valve is not well visualized. Mitral Valve The mitral valve has normal leaflets. Tricuspid Valve The tricuspid valve leaflets are normal. Pericardium/Pleural The pericardium appears normal. Aorta The aortic root size at the sinus of Valsalva is normal. Left Ventricular Outflow Tract Name Value Normal LVOT 2D LVOT Diameter 2.0 cm LVOT Doppler LVOT Peak Gradient 3 mmHg LVOT Mean Gradient 2 mmHg LVOT VTI 16 cm LVOT VTI/AV VTI Ratio 0.8 LVOT Stroke Volume 52 ml LVOT CO 3.9 l/min LVOT CI 2.0 l/min/m2 Mitral Valve Name Value Normal MV Doppler MV Decel George 254 cm/s2 MV PHT 74 ms MV Area (PHT) 3.0 cm2 4.0-5.0 MV Diastolic Function MV E Peak Velocity 65 cm/s MV A Peak Velocity 75 cm/s MV E/A 0.9 MV Decel Time 254 ms MV Annular TDI MV E/e' (Septal)
[2022-04-03 06:08] LABS: Basophils Percent Auto 0.2 % (0.2-1.2); Eosinophils Absolute Auto 0.2 K/mm3 (0-0.3); Eosinophils Percent Auto 4.1 % (0-4.4); Hematocrit 45.7 % (37.0-47.0); Hemoglobin 14.9 g/dL (12.0-15.0); Immature Granulocyte Absolute 0.02 K/mm3 (0.00-0.031); Immature Granulocyte Percent A 0.4 % (0-0.5); Lymphocytes Absolute Auto 2.31 K/mm3 (0.9-3.2); Mean Corpuscular HGB Conc 32.6 g/dl (32-36); Mean Corpuscular Hemoglobin 32.4 pg (26-34); Mean Corpuscular Volume 99.3 fl (80-100); Mean Platelet Volume 10.4 fl (7.4-10.4); Monocytes Absolute Auto 0.6 K/mm3 (0.1-0.6); Monocytes Percent Auto 11.4 % (2.6-8.5); Neutrophils Absolute Auto 1.8 K/mm3 (1.3-6.7); Neutrophils Percent Auto 36.9 % (45.5-73.1); Platelet Count Result 193 k/mm3 (150-375); Red Cell Distribution Width 13.9 % (11.5-14.5); White Blood Count 4.9 K/mm3 (4.5-10.0)
[2022-04-03 06:24] LABS: Alanine Aminotransferase 27 U/L (6-35); Alkaline Phosphatase 74 U/L (38-126); Anion Gap 7 mmol/L (8-16); Aspartate Amino Transferase 29 U/L (14-36); Bilirubin,Total 0.4 mg/dL (0.2-1.3); Blood Urea Nitrogen 16 mg/dL (7-17); Calcium 8.8 mg/dL (8.4-10.2); Carbon Dioxide 24 mmol/L (22-30); Chloride 108 mmol/L (98-107); Estimated Glomerular Filt Rate > 60; Glucose 94 mg/dL (65-110); Magnesium 1.9 mg/dL (1.6-2.3); Sodium 139 mmol/L (137-145)
--- NOTE | 2022-04-03 07:52 | PCOTNOTE ---
Per RN, patient having echo, MRIs later. Will try to see patient when available for OT.
[2022-04-03] MEDS: ASPIRIN 81 MG ENTERIC TABLET PO (08:16)
[2022-04-03] MEDS: ATORVASTATIN 40 MG TABLET PO (08:17)
[2022-04-03] MEDS: SENNA/DOCUSATE SODIUM TABLET 1 TAB PO (08:17)
[2022-04-03] MEDS: CEPHALEXIN 500 MG CAPSULE PO (08:17)
--- NOTE | 2022-04-03 11:37 | PCOTNOTE ---
Patient out of room for MRIs, unavailable to see for OT. Will continue OT per plan of care.
--- NOTE | 2022-04-03 15:55 | PM.IMPN ---
Progress Note: A&P Assessment and Plan (1) Right sided numbness: Code(s): R20.0 - Anesthesia of skin Status: Acute Assessment and Plan: Patient presented with numbness of her right upper extremity. CTA showed normal brain with no aneurysm or significant intracranial stenosis Brain MRI was normal Patient has been seen in consultation by Neurology Contrast MRI also normal, cervical spine MRI and thoracic MRI with normal cord signal, no evidence of lesions Severe cervical spondylosis is noted which could contribute to symptoms Appreciate PT/OT eval Echocardiogram with bubble study is pending Telemetry reviewed and patient is in normal sinus rhythm. Discontinue tele Will obtain x-ray of the right wrist and hand due to swelling of right digits to rule out injury as etiology. Venous and arterial Doppler negative for DVT or arterial occlusive disease. Continue aspirin and high-intensity statin. (2) Generalized weakness: Code(s): R53.1 - Weakness Status: Acute Assessment and Plan: Patient endorses generalized weakness Appreciate PT/OT eval. Check B12 and folic acid Patient needs wheelchair for or home in order to perform in complete ADLs. Unable to use walker or cane due to weakness. (3) Tobacco abuse: Code(s): Z72.0 - Tobacco use Status: Acute Assessment and Plan: Patient with heavy smoking history now smoking half pack per day Patient has been educated on smoking cessation. Continue to reinforce (4) Folliculitis: Code(s): L73.9 - Follicular disorder, unspecified Status: Ruled-out Assessment and Plan: Concern for folliculitis of the neck on presentation No evidence of infection/folliculitis on my exam. No signs/symptoms to suggest underlying infection Keflex to be discontinued (5) Subclinical hypothyroidism: Code(s): E03.8 - Other specified hypothyroidism Status: Acute Assessment and Plan: TSH slightly elevated at 5.30 with normal T4 and T3 Will need repeat reflex TSH in 4-6 weeks as an outpatient Subjective Date/time seen: 04/03/22 15:55 Interval history: Date of service: 04/03/2022 Lo Fitzgerald is a 47 year old female with a history of tobacco abuse, PTSD, depression, and anxiety who is seen in follow up for numbness/tingling of right upper extremity. She states this has improved but is still persistent. She also endorses swelling of her right fingers and difficulty moving them. She denies any recent injury or accident. Her partner is at the bedside and he states he has noticed slurred/mumbled speech while she is talking to him on the phone. She feels weak. She endorses unsteadiness and feels off balance. Denies lightheadedness or dizziness. She endorses sinus congestion today. Denies abdominal pain, nausea, vomiting, fever, chills, SOB, cough, chest pain. No visual changes. No dysphagia. Review of Systems Review of Systems: All systems reviewed & are unremarkable except as noted in HPI and below Exam Narrative: General: Obese 47 year-old female appearing slightly older than stated age, sitting up in bed comfortable, NARD Neuro: awake, alert and oriented x4, speech clear, CN II-XII intact, strength 4/5 throughout, sensation intact, no pronator drift, decreased aids counselor strength of right hand, able to perform rapid alternating movements HEENMT: normocephalic, atraumatic, EOMI, sclerae anicteric Respiratory: Diminished breath sounds bilaterally, nonlabored breathing Cardio: regular rate, regular rhythm with S1-S2 Abdomen: nondistended, normoactive bowel sounds, soft, nontender to palpation Extremities: Right fingers are mildly edematous, right arm without edema, no erythema or tenderness to palpation, LUE with no edema, radial pulses 2+ bilaterally, brisk capillary refill, bilateral lower extremities without edema, erythema, or tenderness to palpation Skin: no rashes or lesions, warm and dry Psych:
[2022-04-03] MEDS: DOCUSATE SODIUM 100 MG CAPSULE PO (20:47)
[2022-04-03] MEDS: ENOXAPARIN 40 MG/0.4 ML SYRINGE SUB-Q (20:48)
[2022-04-04] VITALS (14 sets, daily range): BP systolic 114–132; BP diastolic 70–89; PULSE 60–85; RESP 14–20; TEMP 36.2–36.9; O2SAT 95–99
[2022-04-04 05:04] LABS: Hemoglobin 14.6 g/dL (12.0-15.0); Mean Corpuscular HGB Conc 32.4 g/dl (32-36); Mean Corpuscular Hemoglobin 32.2 pg (26-34); Mean Corpuscular Volume 99.1 fl (80-100); Mean Platelet Volume 10.3 fl (7.4-10.4); Platelet Count Result 179 k/mm3 (150-375); Red Blood Count 4.54 M/mm3 (4.2-5.4); Red Cell Distribution Width 13.7 % (11.5-14.5); White Blood Count 6.2 K/mm3 (4.5-10.0)
[2022-04-04] MEDS: ACETAMINOPHEN 325 MG TABLET 650 MG PO (05:24)
[2022-04-04 05:26] LABS: Anion Gap 10 mmol/L (8-16); Blood Urea Nitrogen 19 mg/dL (7-17); Calcium 8.9 mg/dL (8.4-10.2); Carbon Dioxide 24 mmol/L (22-30); Chloride 107 mmol/L (98-107); Estimated Glomerular Filt Rate > 60; Glucose 104 mg/dL (65-110); Potassium 3.9 mmol/L (3.4-5.0); Sodium 141 mmol/L (137-145)
[2022-04-04 05:59] LABS: Cholesterol 175 mg/dL (0-200); HDL Direct 32 mg/dL; Triglycerides 120 mg/dL (<150)
[2022-04-04 06:10] LABS: LDL Cholesterol Direct 113 mg/dL
[2022-04-04] MEDS: ATORVASTATIN 40 MG TABLET PO (08:33)
[2022-04-04] MEDS: ASPIRIN 81 MG ENTERIC TABLET PO (08:33)
[2022-04-04] MEDS: DOCUSATE SODIUM 100 MG CAPSULE PO ×2 (08:34→20:31)
[2022-04-04] MEDS: SENNA/DOCUSATE SODIUM TABLET 1 TAB PO (08:34)
[2022-04-04] MEDS: polyethylene glycoL 3350 17 GM POWD.PACK PO (08:35)
--- NOTE | 2022-04-04 13:50 | WPDNEUROPN ---
Subjective Date/time seen: 04/04/22 13:50 Interval history: all the investigations up until now done are negative for the tumor, or stroke considering her symptomatology she will benefit from his spinal fluid studies to rule out the possibility of demyelinating disease. Objective Data Vital Signs Vital Signs: Vital Signs - 24 hr 04/03/22 16:00 04/03/22 16:00 04/03/22 22:05 Temperature 36.5 C 36.6 C Pulse Rate 80 65 76 Respiratory Rate 18 14 Blood Pressure 116/72 112/68 Pulse Oximetry 97 97 Oxygen Delivery 04/04/22 01:33 04/03/22 20:00 04/04/22 00:00 Temperature 36.5 C Pulse Rate 65 80 76 Respiratory Rate 14 Blood Pressure 120/74 Pulse Oximetry 98 Oxygen Delivery 04/04/22 04:00 04/04/22 05:57 04/04/22 08:00 Temperature 36.9 C Pulse Rate 66 72 63 Respiratory Rate 18 Blood Pressure 115/70 Pulse Oximetry 98 Oxygen Delivery 04/04/22 08:00 04/04/22 10:30 04/04/22 12:00 Temperature 36.2 C L Pulse Rate 60 78 Respiratory Rate 16 Blood Pressure 120/88 Pulse Oximetry 99 Oxygen Delivery Room Air Intake/Output Intake/Output: Intake & Output 04/01/22 04/02/22 04/03/22 04/04/22 23:59 23:59 23:59 23:59 Intake Total 240 1180 992 490 Output Total 200 1000 850 600 Balance 40 180 142 -110 Meds/Results Medications: Active Medications Generic Name Dose Route Start Last Admin Trade Name Freq PRN Reason Stop Dose Admin Acetaminophen 650 mg 04/04/22 05:09 04/04/22 05:24 Acetaminophen 325 Mg Tablet PO 650 mg Q6H PRN Administration Mild Pain (1-3) or Fever Aspirin 81 mg 04/02/22 09:00 04/04/22 08:33 Aspirin 81 Mg Enteric Tablet PO 81 mg QAM LORI Administration Atorvastatin Calcium 40 mg 04/02/22 09:00 04/04/22 08:33 Atorvastatin 40 Mg Tablet PO 40 mg DAILY LORI Administration Docusate Sodium 100 mg 04/03/22 21:00 04/04/22 08:34 Docusate Sodium 100 Mg Capsule PO 100 mg Q12HR LORI Administration Enoxaparin Sodium 40 mg 04/02/22 21:00 04/03/22 20:48 Enoxaparin 40 Mg/0.4 Ml Syringe SUB-Q 40 mg HS LORI Administration Polyethylene Glycol 17 gm 04/04/22 09:00 04/04/22 08:35 Polyethylene Glycol 3350 17 Gm Powd.Pack PO 17 gm QAM LORI Administration Senna/Docusate Sodium 1 tab 04/03/22 09:00 04/04/22 08:34 Senna/Docusate Sodium Tablet PO 1 tab DAILY LORI Administration Radiology Results: ITS Impressions Carotid Doppler Study 04/02/22 09:53 IMPRESSION: 1. <50% stenosis in the right internal carotid artery. 2. <50% stenosis in the left internal carotid artery. Brain MRI 04/03/22 13:03 IMPRESSION: 1. Normal brain. Cervical Spine MRI 04/03/22 13:06 IMPRESSION: 1. Severe cervical spondylosis. Thoracic Spine MRI 04/03/22 13:24 IMPRESSION: 1. Mild thoracic spondylosis. 2. Thoracic levoscoliosis. Venous Doppler Study 04/03/22 13:28 IMPRESSION: 1. No deep venous thrombosis. Duplex Scan Upper Extremity Artery 04/03/22 13:29 IMPRESSION: 1. No significant arterial occlusive disease. Hand X-Ray 04/03/22 17:27 IMPRESSION: No acute osseous finding in the right hand or wrist. Wrist X-Ray 04/03/22 17:27 IMPRESSION: No acute osseous finding in the right hand or wrist. Labs Labs: Laboratory Results - last 24 hr 04/04/22 04/04/22 04/04/22 04:55 04:55 04:55 WBC 6.2 RBC 4.54 Hgb 14.6 Hct 45.0 MCV 99.1 MCH 32.2 MCHC 32.4 RDW 13.7 Plt Count 179 MPV 10.3 Sodium 141 Potassium 3.9 Chloride 107 Carbon Dioxide 24 Anion Gap 10 BUN 19 H Creatinine 0.80 Estim Creat Clear Calc Not Reportable Estimated GFR > 60 Glucose 104 Calcium 8.9 Triglycerides 120 Cholesterol 175 LDL Cholesterol Direct 113 HDL Direct 32
--- NOTE | 2022-04-04 13:55 | PM.IMPN ---
Progress Note: A&P Assessment and Plan (1) Right sided numbness: Code(s): R20.0 - Anesthesia of skin Status: Acute Assessment and Plan: Patient presented with numbness of her right upper extremity. CTA showed normal brain with no aneurysm or significant intracranial stenosis Brain MRI was normal Patient has been seen in consultation by Neurology Contrast MRI also normal, cervical spine MRI and thoracic MRI with normal cord signal, no evidence of lesions Severe cervical spondylosis is noted which could contribute to symptoms Appreciate PT/OT eval Echocardiogram with bubble study completed with normal EF, no valvular disease, no intracardiac shunt, no cardioembolic source X-ray of right wrist and hand with no osseous abnormalities Venous and arterial Doppler negative for DVT or arterial occlusive disease. Continue aspirin and statin. seen by Neurology who recommends lumbar puncture to rule out possibility of demyelinating disease (2) Generalized weakness: Code(s): R53.1 - Weakness Status: Acute Assessment and Plan: Patient endorses generalized weakness of sudden onset. Etiology unclear. See plan above. Appreciate PT/OT eval. B12 and folic acid pending Patient needs wheelchair for or home in order to perform in complete ADLs. Unable to use walker or cane due to weakness. (3) Tobacco abuse: Code(s): Z72.0 - Tobacco use Status: Acute Assessment and Plan: Patient with history of heavy smoking history now smoking half pack per day Patient has been educated on smoking cessation. Continue to reinforce (4) Folliculitis: Code(s): L73.9 - Follicular disorder, unspecified Status: Ruled-out Assessment and Plan: Ruled out. Concern for folliculitis of the neck on presentation No evidence of infection/folliculitis on my exam. No signs/symptoms to suggest underlying infection Keflex discontinued 04/03/22 (5) Subclinical hypothyroidism: Code(s): E03.8 - Other specified hypothyroidism Status: Acute Assessment and Plan: TSH slightly elevated at 5.30 with normal T4 and T3 Will need repeat reflex TSH in 4-6 weeks as an outpatient Subjective Date/time seen: 04/04/22 13:55 Interval history: Date of service: 04/04/2022 Lo Fitzgerald is a 47 year old female with a history of tobacco abuse, PTSD, depression, and anxiety who is seen in follow up for numbness/tingling of right upper extremity. She still feels very weak today. She was not able to climb any stairs well working with therapy. She does admit to having several stairs to get into her home states that her will be building her wheelchair ramp. she states she was able to walk a little further today. She still has numbness in her right hand and fingers but she states this is a little better today. She still has trouble moving of the hand. 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 She complains of some tingling at her knee and her ankle. She states that occasionally her speech is slurred. She has no additional concerns. Review of Systems Review of Systems: All systems reviewed & are unremarkable except as noted in HPI and below Exam Narrative: General: Obese 47 year-old female, sitting in a chair by the bedside, comfortable, NARD Neuro: awake, alert and oriented x4, speech clear, CN II-XII intact, decreased community relations specialist strength of right hand HEENMT: normocephalic, atraumatic, EOMI, sclerae anicteric Respiratory: clear to auscultation bilaterally, nonlabored breathing Cardio: regular rate, regular rhythm with S1-S2 Abdomen: nondistended, normoactive bowel sounds, soft, nontender to palpation Extremities: Right fingers are mildly edematous, right arm without edema, no erythema or tenderness to palpation, LUE with no edema, bilateral lower extremities without edema, erythema, or tenderness to palpation Skin: no rashes or lesions, warm and dry Psych: nelson
[2022-04-04 15:20] LABS: Hemoglobin A1C 5.7 % (<5.7)
[2022-04-04 15:27] LABS: Folic Acid 7.9 ng/mL (2.76->20)
[2022-04-04 16:02] LABS: Prothrombin Time 12.8 Seconds (11.1-14.7)
[2022-04-04 16:03] LABS: Partial Thromboplastin Time 26.1 SECONDS (22.3-36.8)
[2022-04-04 17:13] LABS: Glucose CSF 60 mg/dL (40-70); Total Protein CSF 69 mg/dL (12-60)
[2022-04-04 18:09] LABS: Appearance CSF Clear (Clear); CSF source CSF
[2022-04-04 18:10] LABS: Color CSF Colorless (Colorless); Lymphocytes CSF 33 % (40-80); Nucleated Cell CSF 5 /uL (0-5); Red Blood Cell CSF 5 (0-2)
[2022-04-04 18:11] LABS: Monocytes CSF 67 % (15-45)
[2022-04-04] MEDS: ENOXAPARIN 40 MG/0.4 ML SYRINGE SUB-Q (20:31)
[2022-04-05] VITALS (11 sets, daily range): BP systolic 107–128; BP diastolic 70–83; PULSE 62–88; RESP 16–18; TEMP 36.3–36.7; O2SAT 92–98
[2022-04-05 08:46] LABS: Hematocrit 45.9 % (37.0-47.0); Hemoglobin 15.2 g/dL (12.0-15.0); Mean Corpuscular HGB Conc 33.1 g/dl (32-36); Mean Corpuscular Hemoglobin 32.5 pg (26-34); Mean Corpuscular Volume 98.3 fl (80-100); Mean Platelet Volume 10.1 fl (7.4-10.4); Platelet Count Result 200 k/mm3 (150-375); Red Blood Count 4.67 M/mm3 (4.2-5.4); Red Cell Distribution Width 13.7 % (11.5-14.5); White Blood Count 6.1 K/mm3 (4.5-10.0)
[2022-04-05 09:01] LABS: Creatine Kinase 47 U/L (30-135)
[2022-04-05 09:26] LABS: Anion Gap 11 mmol/L (8-16); Blood Urea Nitrogen 22 mg/dL (7-17); Calcium 9.4 mg/dL (8.4-10.2); Carbon Dioxide 23 mmol/L (22-30); Chloride 107 mmol/L (98-107); Estimated Glomerular Filt Rate > 60; Glucose 98 mg/dL (65-110); Potassium 4.6 mmol/L (3.4-5.0); Sodium 141 mmol/L (137-145)
[2022-04-05] MEDS: ATORVASTATIN 20 MG TABLET PO (10:13)
[2022-04-05] MEDS: SENNA/DOCUSATE SODIUM TABLET 1 TAB PO (10:13)
[2022-04-05] MEDS: DOCUSATE SODIUM 100 MG CAPSULE PO ×2 (10:13→21:46)
[2022-04-05] MEDS: polyethylene glycoL 3350 17 GM POWD.PACK PO (10:14)
[2022-04-05] MEDS: ASPIRIN 81 MG ENTERIC TABLET PO (10:14)
--- NOTE | 2022-04-05 13:47 | WPDNEUROPN ---
Subjective Date/time seen: 04/05/22 13:47 Interval history: patient has undergone spinal tap with opening pressure of 11cm of water normal being 6 to 20 and maximum 25 in overweight patient 13cc of fluid has been taking and the lab results are pending Objective Data Vital Signs Vital Signs: Vital Signs - 24 hr 04/04/22 14:42 04/04/22 16:00 04/04/22 17:02 Temperature 36.5 C Pulse Rate 69 85 75 Respiratory Rate 14 18 Blood Pressure 132/74 125/89 Pulse Oximetry 99 95 Oxygen Delivery 04/04/22 17:03 04/04/22 17:10 04/04/22 20:00 Temperature 36.5 C Pulse Rate 74 74 74 Respiratory Rate 14 16 16 Blood Pressure 123/87 118/82 Pulse Oximetry 99 97 97 Oxygen Delivery Room Air 04/04/22 20:00 04/04/22 22:52 04/05/22 00:00 Temperature 36.2 C L Pulse Rate 75 72 67 Respiratory Rate 20 Blood Pressure 114/84 Pulse Oximetry 98 Oxygen Delivery 04/05/22 02:00 04/05/22 04:00 04/05/22 06:47 Temperature 36.3 C L 36.4 C L Pulse Rate 68 62 64 Respiratory Rate 18 18 Blood Pressure 107/70 111/74 Pulse Oximetry 96 95 Oxygen Delivery 04/05/22 11:08 Temperature 36.7 C Pulse Rate 67 Respiratory Rate 16 Blood Pressure 110/76 Pulse Oximetry 92 Oxygen Delivery Intake/Output Intake/Output: Intake & Output 04/02/22 04/03/22 04/04/22 04/05/22 23:59 23:59 23:59 23:59 Intake Total 1180 992 970 400 Output Total 1000 850 950 600 Balance 180 142 20 -200 Meds/Results Medications: Active Medications Generic Name Dose Route Start Last Admin Trade Name Freq PRN Reason Stop Dose Admin Acetaminophen 650 mg 04/04/22 05:09 04/04/22 05:24 Acetaminophen 325 Mg Tablet PO 650 mg Q6H PRN Administration Mild Pain (1-3) or Fever Aspirin 81 mg 04/02/22 09:00 04/05/22 10:14 Aspirin 81 Mg Enteric Tablet PO 81 mg QAM LORI Administration Atorvastatin Calcium 20 mg 04/05/22 09:00 04/05/22 10:13 Atorvastatin 20 Mg Tablet PO 20 mg DAILY LORI Administration Docusate Sodium 100 mg 04/03/22 21:00 04/05/22 10:13 Docusate Sodium 100 Mg Capsule PO 100 mg Q12HR LORI Administration Enoxaparin Sodium 40 mg 04/02/22 21:00 04/04/22 20:31 Enoxaparin 40 Mg/0.4 Ml Syringe SUB-Q 40 mg HS LORI Administration Polyethylene Glycol 17 gm 04/04/22 09:00 04/05/22 10:14 Polyethylene Glycol 3350 17 Gm Powd.Pack PO 17 gm QAM LORI Administration Senna/Docusate Sodium 1 tab 04/03/22 09:00 04/05/22 10:13 Senna/Docusate Sodium Tablet PO 1 tab DAILY LORI Administration Radiology Results: ITS Impressions Carotid Doppler Study 04/02/22 09:53 IMPRESSION: 1. <50% stenosis in the right internal carotid artery. 2. <50% stenosis in the left internal carotid artery. Brain MRI 04/03/22 13:03 IMPRESSION: 1. Normal brain. Cervical Spine MRI 04/03/22 13:06 IMPRESSION: 1. Severe cervical spondylosis. Thoracic Spine MRI 04/03/22 13:24 IMPRESSION: 1. Mild thoracic spondylosis. 2. Thoracic levoscoliosis. Venous Doppler Study 04/03/22 13:28 IMPRESSION: 1. No deep venous thrombosis. Duplex Scan Upper Extremity Artery 04/03/22 13:29 IMPRESSION: 1. No significant arterial occlusive disease. Hand X-Ray 04/03/22 17:27 IMPRESSION: No acute osseous finding in the right hand or wrist. Wrist X-Ray 04/03/22 17:27 IMPRESSION: No acute osseous finding in the right hand or wrist. Lumbar Puncture Fluoroscopy 04/04/22 17:08 IMPRESSION: 1. Successful fluoro-guided lumbar puncture. Lumbar Spine MRI 04/05/22 09:57 IMPRESSION: 1. Severe lower lumbar spondylosis. Labs Labs: Laboratory Results - last 24 hr 04/04/22 04/04/22 04/04/22 04:50 04:50 15:14 WBC RBC Hgb Hct MCV MCH MCHC RDW Plt Count MPV PT 12.8 INR 1.0 APTT 26.1 Sodium Potassium Chloride Carbon Dioxide Anion Gap BUN Creatinine Estim C
--- NOTE | 2022-04-05 14:09 | PM.IMPN ---
Progress Note: A&P Assessment and Plan (1) Right sided numbness: Code(s): R20.0 - Anesthesia of skin Status: Acute Assessment and Plan: Patient presented with numbness of her right upper extremity. CTA showed normal brain with no aneurysm or significant intracranial stenosis Brain MRI was normal Patient has been seen in consultation by Neurology Contrast MRI also normal, cervical spine MRI and thoracic MRI with normal cord signal, no evidence of lesions Severe cervical spondylosis is noted which could contribute to symptoms. Pt denies family history of MS or other neurologic conditions Appreciate PT/OT eval Echocardiogram with bubble study completed with normal EF, no valvular disease, no intracardiac shunt, no cardioembolic source X-ray of right wrist and hand with no osseous abnormalities Venous and arterial Doppler negative for DVT or arterial occlusive disease. Continue aspirin and statin. Underwent lumbar puncture on 04/04/2022 with normal opening pressure 11 cm of water with clear colorless fluid. CSF with 5 RBCs, normal cell count, elevated monocytes, low lymphocytes, increased total protein. Additional studies pending. Gram stain negative, CSF culture pending (2) Generalized weakness: Code(s): R53.1 - Weakness Status: Acute Assessment and Plan: Patient endorses generalized weakness of sudden onset. Etiology unclear. See plan above. Lumbar spine MRI completed today which showed severe lower lumbar spondylosis Appreciate PT/OT eval. CK within normal limits. B12 and folate within normal limits Patient needs wheelchair for or home in order to perform in complete ADLs. Unable to use walker or cane due to weakness. (3) Tobacco abuse: Code(s): Z72.0 - Tobacco use Status: Acute Assessment and Plan: Patient with history of heavy smoking history now smoking half pack per day Patient has been educated on smoking cessation. Continue to reinforce (4) Subclinical hypothyroidism: Code(s): E03.8 - Other specified hypothyroidism Status: Acute Assessment and Plan: TSH slightly elevated at 5.30 with normal T4 and T3 Will need repeat reflex TSH in 4-6 weeks as an outpatient Subjective Date/time seen: 04/05/22 14:09 Interval history: Date of service: 04/05/2022 Lo Fitzgerald is a 47 year old female with a history of tobacco abuse, PTSD, depression, and anxiety who is seen in follow up for numbness/tingling of right upper extremity. She feels better today. She feels like she is gaining some of her strength back. She was able to walk with therapy today and felt stronger doing so. States her right lower extremity tingling has resolved. Right upper extremity also nearly resolved. She does still have some contraction of her right hand but is able to move her fingers much easier. She denies back pain. Denies nausea, vomiting, fever, chills, shortness breath, cough, chest pain. 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, however improved from prior exams, bilateral upper and lower extremity strength 4/5, sensation intact HEENMT: normocephalic, atraumatic, EOMI, sclerae anicteric Respiratory: clear to auscultation bilaterally, nonlabored breathing Cardio: regular rate, regular rhythm with S1-S2 Abdomen: nondistended, normoactive bowel sounds, soft, nontender to palpation Extremities: Right fingers are mildly edematous, right arm without edema, no erythema or tenderness to palpation, LUE with no edema, able to wiggle fingers bilaterally, bilateral lower extremities without edema, erythema, or tenderness to palpation Skin: no rashes or lesions, warm and dry Psych
[2022-04-05] MEDS: ENOXAPARIN 40 MG/0.4 ML SYRINGE SUB-Q (21:46)
[2022-04-06] VITALS: PULSE 62
[2022-04-06 00:47] VITALS: BP 116/72; PULSE 66; RESP 12; TEMP 36.8; O2SAT 97
[2022-04-06 04:00] VITALS: PULSE 60
[2022-04-06 05:07] LABS: Hematocrit 44.3 % (37.0-47.0); Hemoglobin 14.3 g/dL (12.0-15.0); Mean Corpuscular HGB Conc 32.3 g/dl (32-36); Mean Corpuscular Volume 99.1 fl (80-100); Mean Platelet Volume 10.6 fl (7.4-10.4); Platelet Count Result 177 k/mm3 (150-375); Red Blood Count 4.47 M/mm3 (4.2-5.4); Red Cell Distribution Width 13.4 % (11.5-14.5); White Blood Count 6.4 K/mm3 (4.5-10.0)
[2022-04-06 05:24] LABS: Anion Gap 12 mmol/L (8-16); Blood Urea Nitrogen 21 mg/dL (7-17); Calcium 9.1 mg/dL (8.4-10.2); Carbon Dioxide 23 mmol/L (22-30); Chloride 107 mmol/L (98-107); Estimated Glomerular Filt Rate > 60; Glucose 102 mg/dL (65-110); Potassium 3.9 mmol/L (3.4-5.0); Sodium 142 mmol/L (137-145)
[2022-04-06 05:49] VITALS: BP 115/78; PULSE 66; RESP 20; TEMP 36.8; O2SAT 96
[2022-04-06 08:00] VITALS: PULSE 67
[2022-04-06] MEDS: DOCUSATE SODIUM 100 MG CAPSULE PO (08:38)
[2022-04-06] MEDS: ATORVASTATIN 20 MG TABLET PO (08:38)
[2022-04-06] MEDS: polyethylene glycoL 3350 17 GM POWD.PACK PO (08:38)
[2022-04-06] MEDS: ASPIRIN 81 MG ENTERIC TABLET PO (08:38)
[2022-04-06] MEDS: SENNA/DOCUSATE SODIUM TABLET 1 TAB PO (08:38)
[2022-04-06] MEDS: ACETAMINOPHEN 325 MG TABLET 650 MG PO (08:58)
[2022-04-06 10:41] VITALS: BP 120/73; PULSE 72; RESP 16; TEMP 36.7; O2SAT 94
--- NOTE | 2022-04-06 13:14 | PM.DS ---
DS: Admitting Diagnosis Discharge Date 04/06/2022 Admitting Diagnosis Right-sided numbness DS: Discharge Diagnosis Discharge Diagnosis (1) Right sided numbness: Code(s): R20.0 - Anesthesia of skin Status: Acute Assessment and Plan: Patient presented with numbness of her right upper extremity. Seen in consultation by Neurology for management CTA showed normal brain with no aneurysm or significant intracranial stenosis Brain MRI was normal Contrast MRI also normal, cervical spine MRI and thoracic MRI with normal cord signal, no evidence of lesions Severe cervical spondylosis is noted which could contribute to symptoms. Pt denies family history of MS or other neurologic conditions Echocardiogram with bubble study completed with normal EF, no valvular disease, no intracardiac shunt, no cardioembolic source X-ray of right wrist and hand with no osseous abnormalities Venous and arterial Doppler of right upper extremity negative for DVT or arterial occlusive disease. Underwent lumbar puncture on 04/04/2022 with normal opening pressure 11 cm of water with clear colorless fluid. CSF with 5 RBCs, normal cell count, elevated monocytes, low lymphocytes, increased total protein. Additional studies pending. Gram stain negative, CSF culture pending. She will follow up with Neurology to review final results which were pending at time of discharge. Pt instructed to call 2 days following discharge for further information and to have follow up appointment. She did participate in PT/OT during admission and numbness/weakness of extremity did improve. (2) Generalized weakness: Code(s): R53.1 - Weakness Status: Acute Assessment and Plan: Patient endorsed generalized weakness of sudden onset. Etiology unclear. See above. Lumbar spine MRI showed severe lower lumbar spondylosis Participated in PT/OT during admission. She did have improvement in mobility Wheelchair was arranged in order to assist patient in ADLs. CK. B12 and folate within normal limits (3) Tobacco abuse: Code(s): Z72.0 - Tobacco use Status: Acute Assessment and Plan: Patient with history of heavy smoking history now smoking half pack per day Patient was educated on smoking cessation (4) Subclinical hypothyroidism: Code(s): E03.8 - Other specified hypothyroidism Status: Acute Assessment and Plan: TSH slightly elevated at 5.30 with normal T4 and T3 Will need repeat reflex TSH in 4-6 weeks as an outpatient DS: Summary Hospital Course Hospital Course: Date of admission: 04/01/2022 Date of discharge: 04/06/2022 Lo Fitzgerald is a 47 year old female with a history of tobacco abuse, PTSD, depression, and anxiety who presented to [facility] Emergency Department on 04/01/2022 with complaints of right arm weakness, numbness, tingling. On presentation to the ED, her vital signs were stable, she was afebrile, CBC and BMP unremarkable, CTA of the brain showed normal brain no aneurysm or significant intracranial stenosis. She was transferred to [facility] where she was admitted for Neurology evaluation. Please see above for further details. She did have slow symptomatic improvement. Her lumbar puncture results are pending at time of discharge, however she will follow-up with neurology who will review final results with her. She will also follow up for outpatient EMG and nerve conduction testing. Patient was feeling improved and was very eager for discharge home. Given overall improvement, she was discharged in hemodynamically stable condition on 04/06/2022. She is aware of need for outpatient follow-up. Discussed worrisome signs and symptoms for which to return and she was educated on her medications. Time Spent with Patient Time attestation: Total time spent providing and/or coordinating discharge services: 45 minutes Time spent: Greater than 30 minutes Exam Narrati
[2022-04-11 12:41] LABS: Albumin, CSF 26.5 mg/dL (8.0-42.0); IgG Index, CSF 0.38 (<0.66); IgG, CSF 3.7 mg/dL (0.8-7.7); Immunoglobulin G, Serum 1460 mg/dL (600-1640); Myelin Basic Protein, CSF <2.0 mcg/L (<=4.0); Synthesis Rate IgG, CSF -8.4 mg/24 h (-9.9-3.3)
== END 2022-04-06 13:40 | disposition home or self-care (01) | DRG 58 ==
PROVIDERS: Nurse Practitioner; Physician Assistant; Psychiatry & Neurology Neurology; Admitting Provider Family Medicine; PCP Physician Assistant; Visit Provider Internal Medicine
DX: G81.91 Hemiplegia, unspecified affecting right dominant side (principal); E83.51 Hypocalcemia; H53.8 Other visual disturbances; R47.81 Slurred speech; M47.812 Spondylosis without myelopathy or radiculopathy, cervical region; E03.8 Other specified hypothyroidism; E66.9 Obesity, unspecified; E03.9 Hypothyroidism, unspecified; F43.10 Post-traumatic stress disorder, unspecified; F32.A Depression, unspecified; F41.9 Anxiety disorder, unspecified; F17.210 Nicotine dependence, cigarettes, uncomplicated; K59.00 Constipation, unspecified; M47.816 Spondylosis without myelopathy or radiculopathy, lumbar region; Z88.0 Allergy status to penicillin; Z68.39 Body mass index [BMI] 39.0-39.9, adult
CPT/HCPCS: 36415; 62328; 70551; 70552; 72156; 72157; 72158; 73100; 73120; 80048; 80053; 80061; 81003; 82040; 82042; 82550; 82607; 82746; 82784; 82945; 83036; 83605; 83615; 83690; 83735; 83873; 83916; 84157; 84439; 84443; 84480; 85025; 85027; 85610; 85730; 86140; 87070; 89051; 93880; 93931; 93971; 96372; 96374; 96375; 97110; 97116; 97161; 97165; 97530; 97535; A9270; A9577; C8929; G0378; G0379; J0610; J1650

== ENCOUNTER 2022-04-28 08:07 | Outpatient (RCR) | payer OTHER, SELFPAY ==
--- NOTE | 2022-04-28 12:29 | PTOPEVAL1 ---
Assessment and note entered by JT File, PT Evaluation Information Assessment Status Evaluation Diagnosis spondylosis, generalized weakness Onset 04/21/22 Subjective Information patient reports walking into therapy has been the most walking she has done in over a month. she reports she has pain in her lower back with standing and walking. she reports she also has pain with lifting. she reports she has been having pain in her lower back for 15-20 years. she reports her pain is gradually getting worse. she reports she recently was in the hospital and was thought to have bessie having stroke due to her weakness. however, she reports she did not have a stroke. she reports she has sharp pain in the lower left leg when she walks. however, she reports the R arm is most affected by symptoms of tingling. she reports sitting relieves her pain. she reports increased symptoms when she is up and moving. she reports she has not yet seen a spine surgeon or specialist. she reports she has been walking with a walker for about 1 month. she reports Reported Pain Level Pain Score 5,6,3: Self Report Pain Score 3,6,5,5,6: Self Report Assessment PT Clinical Summary mrs. guo presents to skilled PT services for evaluation and treatment of lower back pain, L LE weakness, generalized weakness, and deconditioning . she presents also with orders for OT evaluation for UE symptoms. she presents this date in severe deconditioning. she displays signs and symptoms of severe spondylosis of the lumbar spine. she would do well to attend skilled PT address her objective/funcitonal deficits and improve her strength, endurance, ambulation mechanics, ambulation distance, and quality of life. Plan of Care Interventions Electrical Stimulation,Gait Training,Hot Pack/Cold Pack,Neuro Re-education,Patient/Caregiver Educati ,Therapeutic Activities,Therapeutic Exercise PT Services Indicated Yes Treatment Frequency and 2x weekly for 12 visits Duration These treatments will address the objective and functional deficits as defined above. The patient will be advanced safely and appropriately in order for the patient to progress towards his/her prior level of function. Additional exercises will be introduced and as well as a comprehensive home exercise program upon discharge, if needed, ?to ensure carryover of functional gains achieved in the clinic. This treatment plan has been reviewed and agreement upon by the patient.
--- NOTE | 2022-04-28 14:11 | OTOPEVAL1 ---
Assessment and note entered by Naida Wilson OT Evaluation Information Assessment Status Evaluation Assessment Status Evaluation Diagnosis Cervical spondylosis with radiculopathy Onset 02/27/2022 Subjective Information The patient reports not doing much at home upon leaving the hospital on 04/06/2022. The patient stated she requires minimal assistance at home for LE dressing, bathing, and homemaking tasks due to decreased endurance and continuous pain. The patient reports having a hard time standing up from the couch after sitting for too long, can only get around with her FWW and has a really hard time getting up out of bed. The patient is working on getting an appointment with a specialist to address current deficits. Reported Pain Level Pain Score 3,6,5,5,5: Self Report Pain Score 3,6,5,5,6: Self Report Assessment OT Clinical Summary The patient is a 47 year old female who has been referred to outpatient OT due to cervical spondylosis with radiculopathy that affects her amount of pain in back, LE and UE and ability to perform self care and homemaking tasks. 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 The patient now demonstrates maximally decreased endurance, min assist with LE dressing and bathing, diminished UE strength, impaired student nurse and pinch strength, and poor sensation of hands experiencing numbness and tingling. The patient requires skilled OT to address current deficits and return to prior level of function for B UE and improve ability to maintain her household as before her diagnosis. Plan of Care Interventions Therapeutic Exercise,Manual Therapy,Neuro Re- education,Therapeutic Activities,Hot Pack/Cold Pack,Electrical Stimulation,Self-Care/Home Management,Ultrasound OT Services Indicated Yes Treatment Frequency and 1x/week for 10 visits. Duration These treatments will address the objective and functional deficits as defined above. The patient will be advanced safely and appropriately in order for the patient to progress towards his/her prior level of function. Additional exercises will be introduced and as well as a comprehensive home exercise program upon discharge, if needed, ?to ensure carryover of functional gains achieved in the clinic. This treatment plan has been reviewed and agreement upon by the patient.
== END 2022-05-05 15:24 | disposition home or self-care (01) ==
LOC: CHSPT 08:07
PROVIDERS: Visit Provider Physician Assistant
DX: M47.22 Other spondylosis with radiculopathy, cervical region (principal); M47.814 Spondylosis without myelopathy or radiculopathy, thoracic region; M41.84 Other forms of scoliosis, thoracic region; R53.1 Weakness
CPT/HCPCS: 97014; 97110; 97163; 97167; 97530; G0283

== ENCOUNTER 2022-09-21 07:34 | Emergency (ER) | payer OTHER, SELFPAY ==
--- NOTE | ~2022-09-21 | XR_ITS ---
EXAMINATION: XR chest 2V DATE: 09/21/2022 08:16 INDICATION: Chest pain TECHNIQUE: PA and lateral views of the chest are obtained. COMPARISON: None available FINDINGS: The lungs are free of acute opacities. No pleural effusion or pneumothorax. The cardiomedia stinal silhouette is normal. There is mild thoracic spondylosis. IMPRESSION: 1. No acute cardiopulmonary abnormality. Reviewed, dictated and finalized at location L.
--- NOTE | 2022-09-21 07:37 | ECG_ITS ---
Measurements Intervals [place] Rate: 95 P: 72 TN: 122 QRS: 55 QRSD: 85 T: 56 QT: 361 QTc: 455 Interpretive Statements SINUS RHYTHM WITH MARKED SINUS ARRHYTHMIA NORMAL ECG COMPARED TO ECG 04/01/2022 09:34:20 SINUS ARRHYTHMIA NOW PRESENT Electronically Signed On 09-21-2022 8:05:18 CDT by Ky Willis D.O.
[2022-09-21 07:47] VITALS: BP 143/98; PULSE 96; RESP 17; TEMP 36.2; O2SAT 97
--- NOTE | 2022-09-21 08:12 | ED.CHESTPAIN ---
HPI - Chest Pain General Chief Complaint: Chest Pain Stated Complaint: chest pain Time Seen by Provider: 09/21/22 07:42 Source: patient and family Mode of arrival: ambulatory Limitations: no limitations History of Present Illness HPI narrative: This is a 47 an year old female with a history of hyperlipidemia presents with some off and on history that is been going on for about a month with epigastric pain and discomfort pain that occurs especially after eating, currently is having epigastric and chest wall pain with no fever chills does have some nausea without vomiting the pain she describes is a burning aching that radiates to her back with no radiation into her jaw shoulder or arm no shortness of breath, patient states that she has a history of heart disease, and family history of heart disease and is a smoker. complaint: chest pain and chest discomfort Onset (ago): month(s) Timing of current episode: episodic Prior episodes: Yes Pain location: epigastric Pain radiation: none Severity: moderate Pain scale (0-10): 7 Relieving factors: nothing Exacerbating factors: eating Related Data Home Medications Medication Instructions Recorded Confirmed atorvastatin 40 mg tablet 40 mg PO DAILY 09/21/22 09/21/22 fluvoxamine 100 mg tablet 100 mg PO DAILY 09/21/22 09/21/22 prazosin 1 mg capsule 1 mg PO DAILY 09/21/22 09/21/22 prazosin 2 mg capsule 2 mg PO DAILY 09/21/22 09/21/22 Allergies Allergy/AdvReac Type Severity Reaction Status Date / Time Penicillins Allergy Intermediate Rash Verified 09/21/22 07:44 Review of Systems Review of Systems: All systems reviewed & are unremarkable except as noted in HPI and below PMFSH Past Medical History Medical History Anxiety Depression Obesity PTSD (post-traumatic stress disorder) Tobacco abuse Surgical History Surgical History History of tubal ligation Family History Family History Mother , mother had obesity and diabetes Diabetes mellitus Father , father of lung cancer No problems noted. Sibling , A sister at age 42 of melanoma No problems noted. Social History Social History Social History: the patient lives with her significant other and her daughter. The patient did have 3 children but her son from COVID this past year. 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 She still smokes about half a pack a cigarettes every day. Started smoking when she was 8 years old. Patient denies any alcohol marijuana or illicit drugs. Her significant other and her daughter are the durable power consular officer for healthcare. Code status full code Smoking packs per day: 0.5 Smoking cigarettes per day: 10.0 Years smoked: 39 Smoking pack-years: 19.50 Smoking status: Current every day smoker Alcohol intake: never Substance use: never Spiritual care concerns: No Exam Const: General: healthy appearing Nutritional Appearance: well nourished Orientation/consciousness: patient oriented x3 Limitations: no limitations HENMT: Head: normal to inspection Face and sinus: normal facial exam Eyes: Conjunctivae: conjunctivae normal Pupils: Equal, round and reactive pupils present EOM: EOMs intact bilaterally Neck: Neck: normal visual inspection Chest: Chest palpation & inspection: normal inspection of the chest Resp: Effort & Inspection: normal respiratory effort Auscultation: clear to auscultation bilaterally Cardio: Rate: regular rate and bradycardic GI: GI Palp: Yes Soft to palpation and Yes Tenderness to palpation present (GI) Other: Epigastric tenderness with palpation as well as reproducible chest pain with palpation. : Gene
[2022-09-21 08:23] LABS: Hematocrit 42.4 % (35.0-49.0); Hemoglobin 14.2 g/dL (12.0-15.0); Mean Corpuscular Hemoglobin 32.5 pg (27.0-31.0); Red Blood Count 4.37 M/mm3 (4.20-5.40); White Blood Count 8.4 K/mm3 (4.8-10.8)
[2022-09-21 08:24] LABS: Basophils Absolute Auto 0.06 K/mm3 (0.00-0.10); Basophils Percent Auto 0.7 % (0.0-1.0); Eosinophils Absolute Auto 0.23 K/mm3 (0.02-0.50); Eosinophils Percent Auto 2.7 % (1.0-6.0); Immature Granulocyte Absolute 0.04 K/mm3 (0.00-0.00); Immature Granulocyte Percent A 0.5 % (0.0-0.0); Lymphocytes Absolute Auto 2.28 K/mm3 (1.10-4.50); Lymphocytes Percent Auto 27.1 % (18.0-42.0); Mean Corpuscular HGB Conc 33.5 g/dL (32.0-36.0); Mean Platelet Volume 9.3 fl (9.2-11.8); Monocytes Absolute Auto 0.52 K/mm3 (0.10-0.90); Monocytes Percent Auto 6.2 % (2.0-11.0); Neutrophils Absolute Auto 5.3 K/mm3 (1.7-7.2); Neutrophils Percent Auto 62.8 % (50.0-70.0); Platelet Count Result 274 K/mm3 (150-420); Red Cell Distribution Width 13.5 % (11.6-14.4)
[2022-09-21] MEDS: MAG HYDROX/ALUMINUM HYD/SIMETH 30 ML, PHENobarb/HYOSCY/ATROPINE/SCOP 32.4 MG, LIDOCAINE... PO (08:27)
[2022-09-21] MEDS: PANTOPRAZOLE SODIUM IV 40 MG VIAL IV PUSH (08:28)
[2022-09-21 08:40] LABS: Partial Thromboplastin Time 27.6 SEC (23.90-30.70); Prothrombin Time 10.6 Seconds (9.50-12.10)
[2022-09-21 08:42] LABS: D Dimer 0.27 mg/L (0.19-0.50)
[2022-09-21 08:46] LABS: Lactic Acid Reflex 2.6 mmol/L (0.4-2.0)
[2022-09-21 08:49] LABS: Alanine Aminotransferase 27 U/L (14-59); Albumin Level 3.2 g/dL (3.4-5.0); Alkaline Phosphatase 107 U/L (46-116); Anion Gap 9 mmol/L (8-16); Aspartate Amino Transferase 13 U/L (15-37); Bilirubin,Total 0.3 mg/dL (0.00-1.00); Blood Urea Nitrogen 12 mg/dL (7-18); Calcium 8.5 mg/dL (8.5-10.1); Carbon Dioxide 26 mmol/L (21-32); Chloride 107 mmol/L (98-108); Estimated Glomerular Filt Rate 49; Glucose 121 mg/dL (70-99); Lipase 48 U/L (16-77); NT Pro B Type Natriuretic Pept 23 pg/mL (0-125); Osmolality Calculated 294 mOsm/kg (285-295); Potassium 3.4 mmol/L (3.5-5.1); Sodium 142 mmol/L (136-145); Total Protein 7.2 g/dL (6.4-8.2)
[2022-09-21 08:50] LABS: Troponin I 4.7 ng/L (0.00-60.4)
[2022-09-21 09:20] LABS: Appearance Urine Clear (Clear); Bilirubin Urine Negative (Negative); Blood Urine Negative (Negative); Color Urine Yellow (Yellow); Glucose Urine UA Negative (Negative); Ketones Urine Trace (Negative); Leukocyte Esterase Ur Negative LEU/UL (Negative); Nitrate Urine Negative (Negative); Protein Urine Negative (Negative); Urobilinogen Urine 0.2 mg/dL (0.2-1.0); pH Urine 6.5 (5.0-8.0)
[2022-09-21 09:26] LABS: Add Urine Microscopic? YES; Bacteria Urine Trace /hpf; RBC Urine None seen /hpf (0-2); Squamous Epithelial Cell Urine Many /hpf (Few); WBC Urine None seen /hpf (0-3)
[2022-09-21 09:44] VITALS: BP 118/86; PULSE 86; RESP 19; TEMP 36.7; O2SAT 97
[2022-09-21 11:21] LABS: Reflex Lactic Acid Yes or No Add Lactic
== END 2022-09-21 09:45 | disposition home or self-care (01) ==
PROVIDERS: Emergency Provider Emergency Medicine; PCP Physician Assistant
DX: K21.9 Gastro-esophageal reflux disease without esophagitis (principal); E78.5 Hyperlipidemia, unspecified; F17.210 Nicotine dependence, cigarettes, uncomplicated
CPT/HCPCS: 36415; 71046; 80053; 81001; 83605; 83690; 83880; 84484; 85025; 85380; 85610; 85730; 86140; 93005; 96374; 99283; 99284; A9270; C9113